=== PATIENT | female | born 1975 | race Caucasian/White ===

== ENCOUNTER 2018-11-19 05:16 | Emergency (ER) | payer SELFPAY ==
[~2018-11-19] VITALS: Ht 165.1 cm; Wt 70.3 kg
--- NOTE | 2018-11-19 05:09 | NUR ---
ED Nurse Note: pt harpala ra 27 d/t chest pain x 3 hours, pt denies homelessness. pt was ambulatory to scene.
[2018-11-19 05:13] VITALS: BP 144/80
--- NOTE | 2018-11-19 05:16 | NUR ---
ED Nurse Note: pt placed on [facility] of [facility] rehabilitation bed at lowest position, with x2 side rails.
--- NOTE | 2018-11-19 05:32 | Emergency Room Report ---
History of Present Illness General Chief Complaint: Chest Pain Source: Patient Present Illness HPI 43-year-old female with no past medical history. She presents with chief complaint of chest pain. Patient states she has left-sided chest pain that radiated down her whole left side of her body. Onset for last several hours. She called 911 from a [employer] store. EMS did not give any medication. She denies any fever chills but denies any nausea or vomiting. No exertional component. Denies any alcohol or drugs. Allergies: Coded Allergies: No Known Allergies (Unverified , 11/19/18) Patient History Past Medical History: none, see triage record, old chart reviewed Past Surgical History: none Pertinent Family History: none Social History: Denies: smoking Last Menstrual Period: 11/17/18 Now: No Immunizations: other Reviewed Nursing Documentation: PMH: Agreed; PSxH: Agreed Nursing Documentation-PMH Past Medical History: No Stated History Review of Systems Eye: Denies: eye pain, blurred vision ENT: Denies: ear pain, nose congestion, throat swelling Respiratory: Denies: cough, shortness of breath Cardiovascular: Reports: chest pain; Denies: palpitations Gastrointestinal: Denies: abdominal pain, diarrhea, nausea, vomiting Musculoskeletal: Denies: back pain, joint pain Skin: Denies: rash Neurological: Denies: headache, numbness Endocrine: Denies: increased thirst, increased urine Hematologic/Lymphatic: Denies: easy bruising All Other Systems: negative except mentioned in HPI Physical Exam Vital Signs Date Time Temp Pulse Resp B/P (MAP) Pulse Ox O2 Delivery O2 Flow Rate FiO2 11/19/18 05:06 98.1 100 16 144/80 (101) 98 Room Air Labs unremarkable Sp02 EP Interpretation: reviewed, normal General Appearance: well appearing, no apparent distress, alert, other - Sleepy Head: normocephalic, atraumatic Eyes: bilateral eye PERRL, bilateral eye EOMI ENT: hearing grossly normal, normal pharynx Neck: full range of motion, supple, no meningismus Respiratory: chest non-tender, lungs clear, normal breath sounds Cardiovascular #1: regular rate, rhythm, no murmur Gastrointestinal: normal bowel sounds, non tender, no mass, no organomegaly, no bruit, non-distended Musculoskeletal: back normal, gait/station normal, normal range of motion Psychiatric: mood/affect normal Medical Decision Making Diagnostic Impression: Primary Impression: Chest pain Qualified Codes: R07.9 - Chest pain, unspecified ER Course Patient presents with atypical chest pain. EKG normal. Troponin negative. She says she in all day. No evidence of ACS, PE, dissection. Will discharge home. EKG Diagnostic Results Rate: normal Rhythm: NSR ST Segments: no acute changes ASA given to the pt in ED: Yes Rhythm Strip Diag. Results EP Interpretation: yes Rate: 70 Rhythm: NSR, no PVC's, no ectopy Last Vital Signs Date Time Temp Pulse Resp B/P (MAP) Pulse Ox O2 Delivery O2 Flow Rate FiO2 11/19/18 05:13 98.1 100 16 144/80 98 Room Air Status: improved Disposition: HOME, SELF-CARE Condition: Stable Patient Instructions: Nonspecific Chest Pain Additional Instructions: Follow up with your doctor in 7 days. Return if symptoms worsen. Matt Duggan MD Nov 19, 2018 05:32
[2018-11-19] MEDS ORDERED: Aspirin Baby 81mg ORAL ONE (05:45)
--- NOTE | 2018-11-19 05:45 | NUR ---
ED Nurse Note: blood and urine specimen sent to lab
[2018-11-19 06:22] VITALS: BP 117/66
--- NOTE | 2018-11-19 06:22 | NUR ---
ER DISCHARGE NOTE: Patient is cleared to be discharged per ERMD, pt is aox4, on room air, with stable vital signs. pt was given dc and prescription instructions, pt was able to verbalize understanding, pt id band removed. pt is able to ambulate with steady gait. pt took all belongings.
== END 2018-11-19 06:22 | disposition home or self-care (01) ==
LOC: EDBD 05:16 → EMR 05:50
DX: R07.9 Chest pain, unspecified (principal)
CPT/HCPCS: 80307; 84484; 93005; 99284

== ENCOUNTER 2018-12-01 22:28 | Emergency (ER) | payer SELFPAY ==
[~2018-12-01] VITALS: Ht 165.1 cm; Wt 88.5 kg
--- NOTE | 2018-12-01 22:36 | NUR ---
Note undone in EDM - 12/01/18 at 2238 by [email or web address] Patient nanci Ra 827 from the [facility] c/o rolled right ankle. ER Nurse Note: Pt NANCI 83Cesar from [place] c/o RT ankle pain since 2199. Pt stated she was walking, rolled her Rt ankle. Pt states 6/10 aching pain. Sitting in wheelchair, no signs of distress. Offered ice pack. Will continue to motnior.
--- NOTE | 2018-12-01 22:36 | NUR ---
ER Nurse Note: Pt BIBA 827 from [place] c/o RT ankle pain since 2199. Pt stated she was walking, rolled her Rt ankle. Pt states 6/10 aching pain. Sitting in wheelchair, no signs of distress. Offered ice pack. Will continue to motnior.
--- NOTE | 2018-12-01 22:36 | NUR ---
Patient nanci Ra [address] [facility] c/o rolled right ankle. ER Nurse Note: Pt NANCI 827 from [place] c/o RT ankle pain since 2199. Pt stated she was walking, rolled her Rt ankle. Pt states 6/10 aching pain. Sitting in wheelchair, no signs of distress. Offered ice pack. Will continue to motnior.
[2018-12-01] MEDS ORDERED: IBUPROFEN600 MG ORAL (22:45)
--- NOTE | 2018-12-01 22:46 | Emergency Room Report ---
History of Present Illness General Chief Complaint: Lower Extremity Injury Source: Patient Present Illness HPI This is a 43-year-old female with no past medical history. She presents with chief complaint of right ankle pain. She said this occurred 20 minutes prior to arrival. [place]. She then got someone to drive her all the way to this area and then from the street she called 911. Pain is throbbing in nature. Worse with walking. Better with rest. Denies any other complaint. No other injury. Allergies: Coded Allergies: No Known Allergies (Unverified , 11/19/18) Patient History Past Medical History: see triage record, old chart reviewed Past Surgical History: none Pertinent Family History: none Social History: Denies: smoking Last Menstrual Period: n/a Now: No Immunizations: other Reviewed Nursing Documentation: PMH: Agreed; PSxH: Agreed Nursing Documentation-PMH Past Medical History: No Stated History Review of Systems Eye: Denies: eye pain, blurred vision ENT: Denies: ear pain, nose congestion, throat swelling Respiratory: Denies: cough, shortness of breath Cardiovascular: Denies: chest pain, palpitations Gastrointestinal: Denies: abdominal pain, diarrhea, nausea, vomiting Musculoskeletal: Reports: joint pain; Denies: back pain Skin: Denies: rash Neurological: Denies: headache, numbness Endocrine: Denies: increased thirst, increased urine Hematologic/Lymphatic: Denies: easy bruising All Other Systems: negative except mentioned in HPI Physical Exam Vital Signs Date Time Temp Pulse Resp B/P (MAP) Pulse Ox O2 Delivery O2 Flow Rate FiO2 12/01/18 22:23 97.5 83 18 103/72 (82) 98 Room Air Vitals normal Sp02 EP Interpretation: reviewed, normal General Appearance: well appearing, no apparent distress, alert Head: normocephalic, atraumatic Eyes: bilateral eye PERRL, bilateral eye EOMI ENT: hearing grossly normal, normal pharynx Neck: full range of motion, supple, no meningismus Respiratory: chest non-tender, lungs clear, normal breath sounds Cardiovascular #1: regular rate, rhythm, no murmur Gastrointestinal: normal bowel sounds, non tender, no mass, no organomegaly, no bruit, non-distended Musculoskeletal: back normal, gait/station normal, normal range of motion, other - Right ankle: No deformity. No swelling. Normal pulse. Patient complained of diffuse pain. Psychiatric: mood/affect normal Medical Decision Making Diagnostic Impression: Primary Impression: Right ankle sprain Qualified Codes: S93.401A - Sprain of unspecified ligament of right ankle, initial encounter ER Course Patient complaint of ankle sprain. I see no evidence of any injury. Her timeline does not make sense. She says she injured her ankle at the beach which is in [place]. She then had someone drop her off several blocks from here set of taking her to [facility]. I see no trauma at all. X-rays negative. Will discharge home. Other X-Ray Diagnostic Results Other X-Ray Diagnostic Results : X-Ray ordered: Right ankle x-rays # of Views/Limited Vs Complete: 3 View Indication: Pain EP Interpretation: Yes Interpretation: no dislocation, no soft tissue swelling, no fractures Impression: No acute disease Electronically Signed by: Matt Duggan mD Last Vital Signs Date Time Temp Pulse Resp B/P (MAP) Pulse Ox O2 Delivery O2 Flow Rate FiO2 12/01/18 22:23 97.5 83 18 103/72 (82) 98 Room Air Status: improved Disposition: HOME, SELF-CARE Condition: Stable Scripts Ibuprofen* (MOTRIN*) 600 Mg Tablet 600 MG ORAL THREE TIMES A DAY, #30 TAB 0 Refills Prov: Matt Duggan MD 12/01/18 Patient Instructions: Ankle Sprain Additional Instructions: Elevate leg. Ice pack to area. Follow up with your doctor in 7 days. Return if worse. Matt Duggan MD Dec 01, 2018 22:46
--- NOTE | 2018-12-01 22:56 | NUR ---
ER DISCHARGE NOTE: Patient is cleared to be discharged per ERMD, pt is aox4, on room air, with stable vital signs. pt was given dc and prescription instructions, pt was able to verbalize understanding, pt id band removed without complications. pt is able to ambulate with steady gait. pt took all belongings.
[2018-12-01 22:57] VITALS: BP 110/75
--- NOTE | 2018-12-01 23:16 | Diagnostic Imaging Report ---
EXAM: XR Right Ankle Complete, 3 or More Views CLINICAL HISTORY: TRAUMA TECHNIQUE: Frontal, lateral and oblique views of the right ankle. COMPARISON: No relevant prior studies available. FINDINGS: Bones/joints: No acute fracture or malalignment. Plantar calcaneal osteophyte. Soft tissues: Lateral soft tissue edema. IMPRESSION: No acute fracture or malalignment.
== END 2018-12-01 22:56 | disposition home or self-care (01) ==
LOC: EDBD 22:28 → EMR 22:40
DX: S93.401A Sprain of unspecified ligament of right ankle, initial encounter (principal); X50.1XXA Overexertion from prolonged static or awkward postures, initial encounter; Y93.01 Activity, walking, marching and hiking; Y92.832 Beach as the place of occurrence of the external cause
CPT/HCPCS: 99283